=== PATIENT | male | born 1945 | race Caucasian/White ===

== ENCOUNTER 2022-04-19 07:24 | Day surgery (SDC) | payer MEDICARE ==
[~2022-04-19 07:24] MED LIST: Midazolam HCl 2 mg/2 ml Vial ONE; fentaNYL Citrate/PF 100 MCG/2 ML SYRINGE ONE
[2022-04-19] MEDS ORDERED: Phenylephrine 2.5% Ophth Soln 5 ML BOT ONE (07:53)
[2022-04-19] MEDS ORDERED: Cyclopentolate 1% Opth Drop 2 ML BOT ONE (07:53)
[2022-04-19] MEDS ORDERED: Fluorouracil 100 MG, Enoxaparin Sodium 25 MG, EPINEPHrine 0.3 MG in Ophthalmic Irrigati... IRR SCH (08:15)
[2022-04-19] MEDS ORDERED: Lidocaine 1% MPF 2 ML VIAL ONE ×2 (08:25→09:28)
[2022-04-19] MEDS ORDERED: CEFAZOLIN 1 GM VIAL ONE (09:28)
[2022-04-19] MEDS ORDERED: Enoxaparin Sodium 30 MG/0.3 ML SYRINGE ONE (09:28)
[2022-04-19] MEDS ORDERED: PROPOFOL 200 MG/20 ML VIAL ONE (09:28)
[2022-04-19] MEDS ORDERED: Indocyanine Green 25 MG/10 ML VIAL ONE (09:28)
[2022-04-19] MEDS ORDERED: Bupivacaine 0.75% 10 ML VIAL ONE (09:28)
[2022-04-19] MEDS ORDERED: Triamcinolone 40 MG/ML VIAL ONE (09:28)
[2022-04-19] MEDS ORDERED: Maxitrol 0.1% Opth Oint 3.5 GM TUBE ONE (09:28)
[2022-04-19] MEDS ORDERED: Lidocaine 4% PF 5 ML AMP ONE (09:28)
== END 2022-04-19 11:25 | disposition home or self-care (01) ==
LOC: SDC 07:24
PROVIDERS: ATTEND Ophthalmology Retina Specialist
PROC: 08T53ZZ Resection of Left Vitreous, Percutaneous Approach (ICD-10-PCS; principal; 2022-04-19)
PROC: 08NF3ZZ Release Left Retina, Percutaneous Approach (ICD-10-PCS; 2022-04-19)
DX: H35.372 Puckering of macula, left eye (principal); Z79.890 Hormone replacement therapy; Z79.899 Other long term (current) drug therapy
CPT/HCPCS: J0171; J0690; J1650; J2250; J2704; J3301; J3490; J9190

== ENCOUNTER 2024-05-21 11:46 | Outpatient (CLI) | payer MEDICARE | END 2024-05-21 11:47 | disposition home or self-care (01) | LOC: SCSRAD 11:46 | PROVIDERS: ATTEND Physician Assistant | DX: R06.00 Dyspnea, unspecified (principal); J98.4 Other disorders of lung; I70.0 Atherosclerosis of aorta | CPT/HCPCS: 71046 ==